=== PATIENT | female | born 1985 | race American Indian/Alaskan Native ===

== ENCOUNTER 2016-06-23 22:35 | Emergency (ER) | payer MEDICAID ==
[2016-06-24 02:05] LABS: Bilirubin,Urine NEG (Negative); Blood,Urine NEG (Negative); Ketones,Urine NEG (Negative); Leukocyte Esterase,Urine LG (Negative); Mucus,Urine 3+ /HPF; Nitrite,Urine NEG (Negative); Protein,Urine <15 mg/dL mg/dL (Negative)
--- NOTE | 2016-06-24 03:26 | Emergency Department Report ---
ED Female HPI - General Chief complaint: Urogenital-Female Stated complaint: PAINFUL TO URINATE/11WKS Time Seen by Provider: 06/24/16 02:48 Source: patient, family Mode of arrival: Ambulatory Limitations: No Limitations - History of Present Illness Initial comments: Patient here reported that she is having sharp pain with urination worsening today. She says she is having some hesitancy or retention. Patient reports vaginal discharge as well but said that within normal vaginal discharge without any further. She said this is not new and she is concerned about an STD. She denies vaginal bleeding in, back pain or abdominal pain. She denies any fever or chills. Denies any nausea or vomiting. She reports she is able to tolerate food and liquid. Patient reports she is 11 weeks and she's been followed by [facility] at [facility]. She says she had ultrasound last Friday initiated her baby was fine in her uterus and she has an appointment with [facility] doctor soon. MD Complaint: vaginal discharge, dysuria -: This afternoon Severity scale (0 -10): 0 Are you Now?: Yes Associated Symptoms: vaginal discharge, dysuria. denies: vaginal bleeding, abdominal pain, nausea/vomiting, fever/chills, headaches, loss of appetite, hematuria, rash, seizure, shortness of breath, syncope, weakness - Related Data Sexually active: Yes Previous Rx's Medication Instructions Recorded Last Taken Type Nitrofurantoin [place]/M-Cryst 100 mg PO Q12HR #14 capsule 06/24/16 Unknown Rx [Macrobid CAP] Allergies Allergy/AdvReac Type Severity Reaction Status Date / Time No Known Allergies Allergy Unverified 06/23/16 22:52 ED Review of Systems ROS: Stated complaint: PAINFUL TO URINATE/11WKS Other details as noted in HPI Comment: All other systems reviewed and negative Constitutional: denies: chills, fever, weakness Eyes: denies: eye discharge ENT: denies: throat pain, congestion Respiratory: no symptoms reported Cardiovascular: denies: chest pain, palpitations, edema, syncope Gastrointestinal: denies: abdominal pain, nausea, vomiting, diarrhea, constipation Genitourinary: dysuria, discharge. denies: frequency, hematuria Musculoskeletal: denies: back pain, arthralgia Skin: denies: rash Neurological: denies: headache ED Past Medical Hx - Past Medical History Previous Medical History?: Yes Additional medical history: , 11 weeks, hyperthyroid - Surgical History Past Surgical History?: No - Family History Family history: no significant - Social History Smoking Status: Never Smoker Substance Use Type: None - Medications Home Medications: Home Medications Medication Instructions Recorded Confirmed Last Taken Type Nitrofurantoin [place]/M-Cryst 100 mg PO Q12HR #14 capsule 06/24/16 Unknown Rx [Macrobid CAP] ED Physical Exam - General Limitations: No Limitations General appearance: alert, in no apparent distress - Head Head exam: Present: atraumatic, normocephalic, normal inspection - Eye Eye exam: Present: normal appearance, PERRL, EOMI. Absent: periorbital swelling , periorbital tenderness Pupils: Present: normal accommodation - ENT ENT exam: Present: normal exam, normal orophraynx, mucous membranes moist, TM's normal bilaterally, normal external ear exam - Neck Neck exam: Present: normal inspection, full ROM. Absent: tenderness, meningismus, lymphadenopathy - Respiratory Respiratory exam: Present: normal lung sounds bilaterally. Absent: respiratory distress, chest wall tenderness - Cardiovascular Cardiovascular Exam: Present: regular rate, normal rhythm, normal heart sounds, other ( heart tone at 1 70 bpm) - GI/Abdominal GI/Abdominal exam: Present: soft, normal bowel sounds. Absent: distended, tenderness, guarding, rebound, rigid - Extremities Exam Extremities exam: Present: normal inspection, full ROM, normal capillary refill. Absent: tenderness, pedal edema, joint swelling, calf tenderness - Back Exam Back exam: Present: normal inspection, full ROM. Absent: tenderness, CVA tenderness (R), CVA tenderness (L), muscle spasm, paraspinal tenderness, vertebral tenderness, rash noted - Neurological Exam Neurological exam: Present: alert, oriented X3, normal gait - Psychiatric Psychiatric exam: Present: normal affect, normal mood - Skin Skin exam: Present: warm, dry, intact, normal color. Absent: rash ED Course Vital Signs 06/23/16 06/24/16 22:52 05:08 Temperature 98.6 F 98.6 F Pulse Rate 91 H 85 Respiratory 18 20 Rate Blood Pressure 127/76 Blood Pressure 121/72 [Left] O2 Sat by Pulse 99 99 Oximetry FHT 170 BPM - Reevaluation(s) Reevaluation #1: 06/24/16 04:54 Patient stable during ED course and she is able to drink without any difficulties. ED Medical Decision Making - Lab Data Lab Results 06/24/16 Range/Units 01:36 Urine Color Yellow (Yellow) Urine Turbidity Slightly-cloudy (Clear) Urine pH 5.0 (5.0-7.0) Ur Specific [place] 1.026 (1.003-1.030) Urine Protein <15 mg/dl (Negative) mg/dL Urine Glucose (UA) Neg (Negative) mg/dL Urine Ketones Neg (Negative) mg/dL Urine Blood Neg (Negative) Urine Nitrite Neg (Negative) Urine Bilirubin Neg (Negative) Urine Urobilinogen 2.0 (<2.0) mg/dL Ur Leukocyte Esterase Lg (Negative) Urine WBC (Auto) 5.0 (0.0-6.0) /HPF Urine RBC (Auto) 5.0 (0.0-6.0) /HPF U Epithel Cells (Auto) 5.0 (0-13.0) /HPF Urine Mucus 3+ /HPF Urine Yeast (Budding) 2+ /HPF Urine HCG, Qual Positive A (Negative) Urine culture pending - Medical Decision Making ED course: I discussed the patient that she has urinary tract infection and will be treated with Macrobid. Told her that she will need to drink plenty of fluids and call her [facility] to let her know that she was treated in emergency room for urinary tract infection. The patient that her urine culture was sent and will be back in 3-5 days and if we need to change antibiotic will call them and let her know. heart tones is at 170 beats per minutes and patient is not having any related issues. She has [facility] and she has been taking vitamin. She had her first ultrasound and she said that [facility] office told her that it was in her uterus and there are no problem. Patient discharged home in stable condition with her family with prescription for Macrobid. Critical care attestation.: If time is entered above; I have spent that time in minutes in the direct care of this critically ill patient, excluding procedure time. ED Disposition Clinical Impression: Acute cystitis without hematuria Qualifiers: Weeks of gestation: 11 weeks Qualified Code(s): Z3A.11 - 11 weeks gestation of Dysuria during Qualifiers: Trimester: first trimester Qualified Code(s): O26.891 - Other specified related conditions, first trimester Disposition: DISCHARGED TO HOME OR SELFCARE Is pt being admited?: No Does the pt Need Aspirin: No Condition: Stable Instructions: (ED), Urinary Tract Infection in Women (ED), Dysuria ( ED) Additional Instructions: increase her fluid intake. Please call your [facility] office today and let them know that urine hospital and treated for urinary tract infection. Urine was sent out for culture and if we need to change her antibiotic will call [facility]. Take antibiotic as prescribed Prescriptions: Nitrofurantoin [place]/M-Cryst [Macrobid CAP] 100 mg PO Q12HR #14 capsule Referrals: Your,[facility] [Other] - 06/25/16 Forms: Accompanied Note, Work/School Release Form(ED)
[2016-06-24 05:09] VITALS: BP 121/72
== END 2016-06-24 05:43 | disposition home or self-care (01) ==
LOC: ED 22:35
DX: O23.11 Infections of bladder in pregnancy, first trimester (principal); N30.00 Acute cystitis without hematuria; O26.891 Other specified pregnancy related conditions, first trimester; R30.0 Dysuria; E05.90 Thyrotoxicosis, unspecified without thyrotoxic crisis or storm; Z3A.11 11 weeks gestation of pregnancy
CPT/HCPCS: 81001; 81025; 87086; 99282

== ENCOUNTER 2016-08-17 08:26 | Emergency (ER) | payer MEDICAID ==
--- NOTE | 2016-08-17 16:57 | Emergency Department Report ---
ED HPI - General Chief complaint: Abdominal Pain Stated complaint: PAIN/ABD AREA Time Seen by Provider: 08/17/16 16:42 Source: patient Mode of arrival: Ambulatory Limitations: No Limitations - History of Present Illness Initial comments: 30-year-old female with no past medical history currently 19 weeks with prior ultrasound confirming IUP presenting today because of pelvic cramping. Patient states going on for the last 1 day. Has some occasional nausea without any vomiting. No associated diarrhea or blood in stool. She never had this type cramping in the past. States that this does not feel like her prior contractions and she has not had any clear fluid or blood coming from her vagina. - Related Data Previous Rx's Medication Instructions Recorded Last Taken Type Nitrofurantoin [place]/M-Cryst 100 mg PO Q12HR #14 capsule 06/24/16 Unknown Rx [Macrobid CAP] Acetaminophen [Acetaminophen TAB] 500 mg PO Q6HR #12 tablet 08/17/16 Unknown Rx Polyethylene Glycol 3350 [Miralax 17 gm PO QDAY #7 packet 08/17/16 Unknown Rx 3350] Allergies Allergy/AdvReac Type Severity Reaction Status Date / Time No Known Allergies Allergy Verified 08/17/16 08:43 ED Review of Systems ROS: Stated complaint: PAIN/ABD AREA Other details as noted in HPI Comment: All other systems reviewed and negative Constitutional: denies: chills, fever Cardiovascular: denies: chest pain Gastrointestinal: abdominal pain, nausea. denies: vomiting Skin: denies: rash Neurological: denies: headache Psychiatric: denies: anxiety ED Past Medical Hx - Past Medical History Additional medical history: , 11 weeks, hyperthyroid - Surgical History Past Surgical History?: No - Social History Smoking Status: Never Smoker Substance Use Type: None - Medications Home Medications: Home Medications Medication Instructions Recorded Confirmed Last Taken Type Nitrofurantoin [place]/M-Cryst 100 mg PO Q12HR #14 capsule 06/24/16 Unknown Rx [Macrobid CAP] Acetaminophen [Acetaminophen TAB] 500 mg PO Q6HR #12 tablet 08/17/16 Unknown Rx Polyethylene Glycol 3350 [Miralax 17 gm PO QDAY #7 packet 08/17/16 Unknown Rx 3350] ED Physical Exam - General Limitations: No Limitations General appearance: alert, in no apparent distress - Head Head exam: Present: atraumatic - Eye Eye exam: Present: normal appearance - Respiratory Respiratory exam: Present: normal lung sounds bilaterally. Absent: respiratory distress - Cardiovascular Cardiovascular Exam: Present: regular rate, normal rhythm - GI/Abdominal GI/Abdominal exam: Present: soft. Absent: distended, tenderness - External exam: Present: normal external exam Speculum exam: Present: normal speculum exam Bi-manual exam: Present: other (mild tenderness at the fundus, no cervical motion tenderness, no adnexal tenderness) - Neurological Exam Neurological exam: Present: alert - Psychiatric Psychiatric exam: Present: normal affect ED Course Vital Signs 08/17/16 08/17/16 08/17/16 08:43 17:47 18:52 Temperature 97.8 F 98.4 F Pulse Rate 97 H 102 H 97 H Respiratory 18 16 16 Rate Blood Pressure 113/74 Blood Pressure 111/64 127/76 [Left] O2 Sat by Pulse 100 100 100 Oximetry ED Medical Decision Making - Lab Data Result diagrams: 08/17/16 16:52 08/17/16 16:52 - Medical Decision Making Labs and ultrasound Ultrasound shows a viable intrauterine without any clear pathology Labs show some mild leukocytosis The patient's abdominal exam did not show any tenderness in the right upper quadrant or the adnexa or the right lower quadrant. My concern for any sort of abdominal pathology such as appendicitis or cholecystitis is very low. I discussed that the next step would be to do a CAT scan if we were concerned about any other pathology. I discussed that there are downsides to doing the CAT scan were which would increase the chances of baby having potentially high risk of cancer as well as possibly a small amount increased and defects. At this time the patient agrees that we will defer a CAT scan and she states that she will return if her symptoms worsen at which time we can consider a CAT scan. Patient also admits to some constipation with difficulty with stooling. Will prescribe miralax for patient and advised her to increase her water and fiber intake. Critical care attestation.: If time is entered above; I have spent that time in minutes in the direct care of this critically ill patient, excluding procedure time. ED Disposition Clinical Impression: Abdominal pain affecting Disposition: DISCHARGED TO HOME OR SELFCARE Is pt being admited?: No Does the pt Need Aspirin: No Condition: Stable Instructions: Abdominal Pain in (ED) Additional Instructions: Please follow up with the [facility] in the next 2-3 days. Return to the emergency room immediately if your pain worsens significantly or you develop any new symptoms. Prescriptions: Acetaminophen [Acetaminophen TAB] 500 mg PO Q6HR #12 tablet Polyethylene Glycol 3350 [Miralax 3350] 17 gm PO QDAY #7 packet Referrals: PRIMARY CARE, [Primary Care Provider] - 3-5 Days Time of Disposition: 19:05
[2016-08-17 17:26] LABS: Basophils % (Auto) 0.4 % (0.0-1.8); Eosinophils % (Auto) 0.9 % (0.0-4.3); Hematocrit 35.7 % (30.3-42.9); Hemoglobin 11.4 gm/dl (10.1-14.3); Mean Corpuscular HGB Conc 32 % (30-34); Mean Corpuscular Volume 81 fl (79-97); Platelet Count 294 K/mm3 (140-440); Red Blood Count 4.43 M/mm3 (3.65-5.03); Red Cell Distribution Width 14.7 % (13.2-15.2); White Blood Count 13.5 K/mm3 (4.5-11.0)
--- NOTE | 2016-08-17 17:40 | Ultrasound Report ---
FINAL REPORT EXAM: US OB \T\gt; = 14 WEEKS FETUS HISTORY: abdominal pain in TECHNIQUE: Multiple grayscale sonographic images were obtained of the uterus and fetus. PRIORS: None. FINDINGS: Cervix measures approximately 4.6 centimeters in length. There is a viable single intrauterine in transverse lie. heart rate was detected at 149 beats per minute. Stomach and bladder are identified. No gross abnormality is seen in the region of the cord insertion. No gross abnormality is seen in the kidneys. Cisterna magna measures 4.4 millimeters in AP dimension. The cerebellum measures 1.99 centimeters in transverse dimension. Lateral ventricle measures 6 millimeters in transverse dimension. Biparietal diameter 4.7 centimeters. Head circumference 17.4 centimeters. Abdominal circumference 15.4 centimeters. Femur length 3.4 centimeters. Estimated weight 365 grams. Correlates with 99th percentile. Placenta is posterior. No gross abnormality is identified in the visualized portion of the spine. IMPRESSION: 1. Viable single intrauterine with estimated gestational age 20 weeks 3 days. Estimated due date 01/01/2017. Continued follow-up is recommended.
[2016-08-17 17:43] LABS: Alanine Aminotransferase 11 units/L (7-56); Albumin 3.6 g/dL (3.9-5); Albumin/Globulin Ratio 1.1 %; Alkaline Phosphatase 59 units/L (35-129); Anion Gap 21 mmol/L; Blood Urea Nitrogen 3 mg/dL (7-17); Calcium 9.7 mg/dL (8.4-10.2); Carbon Dioxide 20 mmol/L (22-30); Chloride 98.9 mmol/L (98-107); Glucose 96 mg/dL (65-100); Lipase 43 units/L (13-60); Potassium 3.6 mmol/L (3.6-5.0); Sodium 136 mmol/L (137-145)
[2016-08-17] MEDS ORDERED: TYLENOL PO ONE (17:47)
[2016-08-17] MEDS ORDERED: ZOFRAN ODT PO ONE (17:48)
[2016-08-17 17:50] LABS: Mean Corpuscular Hemoglobin 26 pg (28-32)
[2016-08-17 17:58] LABS: Bilirubin,Direct < 0.2 mg/dL (0-0.2); Bilirubin,Indirect 0.1 mg/dL
[2016-08-17 18:37] LABS: Bacteria,Urine 1+ /HPF (Negative); Bilirubin,Urine NEG (Negative); Blood,Urine NEG (Negative); Ketones,Urine 20 mg/dL (Negative); Leukocyte Esterase,Urine MOD (Negative); Mucus,Urine 2+ /HPF; Nitrite,Urine NEG (Negative); Protein,Urine <15 mg/dL mg/dL (Negative); Urobilinogen,Urine < 2.0 mg/dL (<2.0)
[2016-08-17 18:53] VITALS: BP 127/76
== END 2016-08-17 19:46 | disposition home or self-care (01) ==
LOC: ED 08:26
DX: O26.892 Other specified pregnancy related conditions, second trimester (principal); R10.2 Pelvic and perineal pain; Z3A.19 19 weeks gestation of pregnancy
CPT/HCPCS: 36415; 76805; 80048; 80074; 81001; 83690; 84702; 85025; 86850; 86900; 86901; Q0162

== ENCOUNTER 2016-11-12 13:50 | Outpatient (CLI) | payer MEDICAID ==
[2016-11-12 14:59] VITALS: BP 104/57
[2016-11-12 15:30] LABS: Bacteria,Urine 1+ /HPF (Negative); Bilirubin,Urine NEG (Negative); Blood,Urine NEG (Negative); Ketones,Urine NEG (Negative); Leukocyte Esterase,Urine TR (Negative); Mucus,Urine FEW /HPF; Nitrite,Urine NEG (Negative); Protein,Urine <15 mg/dL mg/dL (Negative); RBC,Urine < 1.0 /HPF (0.0-6.0); Urobilinogen,Urine < 2.0 mg/dL (<2.0)
[2016-11-12] MEDS ORDERED: LACTATED RINGERS 500 ML IV ONE (16:02)
== END 2016-11-12 18:00 | disposition home or self-care (01) ==
LOC: TRG 13:50
PROVIDERS: ATTEND Obstetrics & Gynecology Gynecology
DX: O47.03 False labor before 37 completed weeks of gestation, third trimester (principal); Z3A.31 31 weeks gestation of pregnancy
CPT/HCPCS: 81001

== ENCOUNTER 2016-12-15 21:35 | Outpatient (CLI) | payer MEDICAID ==
[2016-12-15] MEDS ORDERED: LACTATED RINGERS 500 ML IV ONE (22:31)
[2016-12-15 23:18] LABS: Bacteria,Urine 1+ /HPF (Negative); Bilirubin,Urine NEG (Negative); Blood,Urine NEG (Negative); Ketones,Urine NEG (Negative); Leukocyte Esterase,Urine TR (Negative); Nitrite,Urine NEG (Negative); Protein,Urine <15 mg/dL mg/dL (Negative); Urobilinogen,Urine < 2.0 mg/dL (<2.0)
[2016-12-15 23:20] VITALS: BP 127/76
== END 2016-12-15 23:40 | disposition home or self-care (01) ==
LOC: TRG 21:35
PROVIDERS: ATTEND Obstetrics & Gynecology Gynecology
DX: O47.03 False labor before 37 completed weeks of gestation, third trimester (principal); Z3A.36 36 weeks gestation of pregnancy
CPT/HCPCS: 59025; 81001

== ENCOUNTER 2017-01-04 12:34 | Inpatient (IN) | payer MEDICAID ==
[2017-01-04] MEDS ORDERED: ZOFRAN IV PRN ×2 (12:57→17:44)
[2017-01-04] MEDS ORDERED: PHENERGAN PO PRN ×2 (12:57→17:44)
[2017-01-04] MEDS ORDERED: XYLOCAINE 2% INFILTRATI ONE ×2 (12:57→15:48)
[2017-01-04] MEDS ORDERED: NARCAN 0.4 MG/1 ML IV PRN (12:57)
[2017-01-04] MEDS ORDERED: STADOL IV PRN (12:57)
[2017-01-04] MEDS ORDERED: SUBLIMAZE IV PRN (12:57)
[2017-01-04] MEDS ORDERED: ePHEDrine SULFATE IV PRN ×2 (12:57→16:24)
[2017-01-04] MEDS ORDERED: POLYCILLIN/NS 2 GM/100 ML 2 GM/100 ML BAG IV ONE (13:00)
[2017-01-04] MEDS ORDERED: PITOCin/NS 30 UNIT/500ML 30 UNITS/500 ML BAG IV SCH ×2 (13:00)
[2017-01-04] MEDS ORDERED: PITOCin/NS 20 UNIT/1000ML DRIP 20 UNITS/1,000 ML BAG IV SCH ×2 (13:00→18:00)
--- NOTE | 2017-01-04 13:05 | History and Physical Report ---
History of Present Illness Date of examination: 01/04/17 Chief complaint: Labor History of present illness: Pt is a 31yo BF EDC 01/10/17; EGA 39 1/7 weeks presents to L&D complaining of RUC's q 3-4 mins. She received care at [facility] and course has been unremarkable and records are not available. GBS is unknown. Past History Past Medical History: thyroid disease Past Surgical History: no surgical history Family/Genetic History: none Social history: no significant social history, single - Obstetrical History Expected Date of Delivery: 01/10/17 Actual Gestation: 39 Week(s) 1 Day(s) : 2 Medications and Allergies Allergies Allergy/AdvReac Type Severity Reaction Status Date / Time No Known Allergies Allergy Verified 08/17/16 08:43 Home Medications Medication Instructions Recorded Confirmed Last Taken Type Ferrous Sulfate [Feosol] 325 mg PO BID 12/15/16 01/04/17 1 Day Ago History Vit-Fe Fumar-FA [ 1 tab PO QDAY 12/15/16 01/04/17 1 Day Ago History Vitamin] Active Meds: Active Medications Butorphanol Tartrate (Stadol) 2 mg IV Q2H PRN PRN Reason: Pain , Severe (7-10) Ephedrine Sulfate (Ephedrine Sulfate) 10 mg IV Q2M PRN PRN Reason: Hypotension Stop: 01/04/17 13:02 Fentanyl (Sublimaze) 100 mcg IV Q2H PRN PRN Reason: Labor Pain Ampicillin Sodium (Polycillin/Ns 1 Gm/50 Ml) 1 gm in 50 mls @ 100 mls/hr IV Q4HR FCO PRN Reason: Protocol Ampicillin Sodium (Polycillin/Ns 2 Gm/100 Ml) 2 gm in 100 mls @ 100 mls/hr IV ONCE ONE PRN Reason: Protocol Stop: 01/04/17 13:56 Lactated Ringer's (Lactated Ringers) 1,000 mls @ 125 mls/hr IV DIRECT FCO Oxytocin/Sodium Chloride (Pitocin/Ns 20 Unit/1000ml Drip) 20 units in 1,000 mls @ 125 mls/hr IV DIRECT FCO Oxytocin/Sodium Chloride (Pitocin/Ns 30 Unit/500ml) 30 units in 500 mls @ 4 mls /hr IV TITR FCO PRN Reason: Protocol Oxytocin/Sodium Chloride (Pitocin/Ns 30 Unit/500ml) 30 units in 500 mls @ 1 mls /hr IV TITR FCO; 1 MILLIUNITS/MIN PRN Reason: Protocol Lidocaine (Xylocaine 2%) 20 ml INFILTRATI ONCE ONE Stop: 01/04/17 12:58 Mineral Oil (Mineral Oil) 30 ml PO QHS PRN PRN Reason: Constipation Naloxone HCl (Narcan 0.4 Mg/1 Ml) 0.1 mg IV Q2MIN PRN PRN Reason: Res Rate </= 8 or 02 SAT < 92% Ondansetron HCl (Zofran) 4 mg IV Q8H PRN PRN Reason: Nausea And Vomiting Promethazine HCl (Phenergan) 25 mg PO Q6H PRN PRN Reason: Nausea And Vomiting Terbutaline Sulfate (Brethine) 0.25 mg SUB-Q ONCE PRN PRN Reason: Hyperstimulation/Hypertonicity Stop: 01/04/17 12:58 Terbutaline Sulfate (Brethine) 0.25 mg IVP ONCE PRN PRN Reason: Hyperstimulation/Hypertonicity Stop: 01/04/17 12:58 Review of Systems All systems: negative - Vital Signs Vital signs: Vital Signs Pulse BP 132 H 141/101 01/04/17 12:52 01/04/17 12:52 Temp Pulse Resp BP Pulse Ox 132 H 141/101 01/04/17 12:52 01/04/17 12:52 - Physical Exam Breasts: Positive: deferred Cardiovascular: Regular rate Lungs: Positive: Clear to auscultation Abdomen: Positive: normal appearance Genitourinary (Female): Positive: normal external genitalia Vagina: Positive: normal moisture Uterus: Positive: enlarged Extremities: Positive: normal - Obstetrical FHR: category 1 Uterine Contraction Monitor Mode: External Cervical Dilatation: 5 Cervical Effacement Percentage: 70 station: -2 Uterine Contraction Pattern: Irregular Uterine Tone Measurement Phase: Contraction Uterine Contraction Intensity: Moderate Results Result Diagrams: 01/04/17 13:16 All other labs normal. Assessment and Plan - Patient Problems (1) 39 weeks gestation of Onset Date: 01/04/17 Current Visit: Yes Status: Acute Plan to address problem: A: IUP @ 39 1/7 weeks in labor Unknown GBS P: Admit to L&D for expectant vaginal delivery IV Ampicillin
[2017-01-04] MEDS ORDERED: BRETHINE SUB-Q PRN (13:10)
[2017-01-04] MEDS ORDERED: BRETHINE IVP PRN (13:15)
[2017-01-04] MEDS ORDERED: PITOCin/NS 20 UNIT/1000ML DRIP IV ONE (15:00)
[2017-01-04] MEDS ORDERED: PITOCin/NS 30 UNIT/500ML IV ONE (15:00)
[2017-01-04 15:05] LABS: Hematocrit 33.7 % (30.3-42.9); Hemoglobin 10.3 gm/dl (10.1-14.3); Mean Corpuscular HGB Conc 31 % (30-34); Mean Corpuscular Volume 76 fl (79-97); Platelet Count 262 K/mm3 (140-440); Red Blood Count 4.43 M/mm3 (3.65-5.03); Red Cell Distribution Width 19.3 % (13.2-15.2)
[2017-01-04 15:08] LABS: Mean Corpuscular Hemoglobin 23 pg (28-32)
[2017-01-04 15:12] LABS: HIVR-1/2 Ab Non React (Non React)
[2017-01-04 15:13] LABS: HIV-1 Antigen p24 Non React (Non React)
[2017-01-04] MEDS ORDERED: fentaNYL-BUPIV 2 MCG/ML-0.125% 200 MCG/100 ML BAG EPIDURAL ONE (15:13)
[2017-01-04] MEDS: LACTATED RINGERS 1,000 ML IV SCH ×2 (15:26→16:49)
[2017-01-04] MEDS ORDERED: NARCAN 2 MG/2 ML IV PRN (16:24)
--- NOTE | 2017-01-04 16:24 | Anesthesia Consultation ---
Anesthesia Consult and Med Hx Date of service: 01/04/17 - Airway Anesthetic Teeth Evaluation: Good ROM Head & Neck: Adequate Mental/Hyoid Distance: Adequate Mallampati Class: Class II Intubation Access Assessment: Probably Good - Pre-Operative Health Status ASA Pre-Surgery Classification: ASA3 Proposed Anesthetic Plan: General - Pulmonary Hx Asthma: No COPD: No Hx Pneumonia: No - Cardiovascular System Hx Hypertension: No - Central Nervous System Hx Seizures: No Hx Psychiatric Problems: No - Endocrine Hx Renal Disease: No Hx End Stage Renal Disease: No Hx Hypothyroidism: Yes Hx Hyperthyroidism: No - Hematic Hx Anemia: Yes Hx Sickle Cell Disease: No - Other Systems Hx Alcohol Use: No Hx Obesity: Yes (BMI 40.4)
[2017-01-04] MEDS ORDERED: fentaNYL-BUPIV 2 MCG/ML-0.125% 200 MCG/100 ML BAG EPIDURAL SCH (17:00)
[2017-01-04] MEDS ORDERED: POLYCILLIN/NS 1 GM/50 ML 1 GM/50 ML BAG IV SCH (17:00)
--- NOTE | 2017-01-04 17:39 | Procedure Note ---
OB Delivery Note - Delivery Date of Delivery: 01/04/17 Surgeon: PRESLEY DONOHUE Estimated blood loss: other (150cc) - Vaginal Delivery presentation: vertex Delivery position: OP Intrapartum events: mult.variable deceleratio Delivery induction: oxytocin Delivery augmentation: rupture of membranes, pitocin Delivery monitor: external FHT, external uterine Route of delivery: vacuum extraction (2 pulls, no pop-offs) Indicators for instrumentation: nonreassuring FHR tracing Delivery placenta: spontaneous Delivery cord: nuchal cord, 3 umbilical vessels Episiotomy: none Delivery laceration: 1st degree (perineal) Delivery repair: vicryl Anesthesia: epidural Delivery comments: delivered OP with low vacuum extraction - 2 pulls; 1 pop-off, and placed on Mom's chest for [id number] bonding and delayed cord clamping. - Infant A at 1 minute: 7 at 5 minutes: 9 Infant Gender: Female (3423gms)
[2017-01-04] MEDS ORDERED: TYLENOL PO PRN (17:44)
[2017-01-04] MEDS ORDERED: TUCKS PAD TP PRN (17:44)
[2017-01-04] MEDS ORDERED: PHENERGAN PR PRN (17:44)
[2017-01-04] MEDS ORDERED: LANSINOH TP PRN (17:44)
[2017-01-04] MEDS ORDERED: BENADRYL PO PRN (17:44)
[2017-01-04] MEDS ORDERED: SODIUM CHLORIDE FLUSH SYRINGE 10 ML IV NR (18:00)
[2017-01-04] MEDS: MOTRIN PO SCH (20:41)
[2017-01-04] MEDS: FEOSOL PO SCH (21:36)
[2017-01-04] MEDS: COLACE PO SCH (21:36)
[2017-01-04] MEDS ORDERED: MINERAL OIL PO PRN (22:00)
[2017-01-04] MEDS ORDERED: MILK OF MAGNESIA PO PRN (22:00)
[2017-01-04] MEDS ORDERED: DULCOLAX PR PRN (22:00)
[2017-01-04] MEDS: NORCO 5/325 PO PRN (23:22)
[2017-01-05] MEDS: MOTRIN PO SCH ×4 (01:12→23:36)
[2017-01-05 06:15] LABS: Hematocrit 29.2 % (30.3-42.9); Hemoglobin 9.3 gm/dl (10.1-14.3)
--- NOTE | 2017-01-05 10:40 | Progress Note ---
Assessment and Plan - Patient Problems (1) 39 weeks gestation of Onset Date: 01/04/17 Current Visit: Yes Status: Resolved (2) (normal spontaneous vaginal delivery) Onset Date: 01/05/17 Current Visit: Yes Status: Resolved Plan to address problem: A: s/p - PPD #1 Doing well P: May go home tomorrow Subjective - Subjective Date of service: 01/05/17 Principal diagnosis: s/p - PPD #1 Interval history: Pt is feeling well, complaining of hemorrhoids. Bleeding improved. Patient reports: appetite normal, voiding normally, pain well controlled, ambulating normally : doing well, nursing well, bottle feeding Objective - Vital Signs Latest vital signs: Vital Signs Temp Pulse Resp BP BP Pulse Ox 01/05/17 04:00 98.2 F 94 H 20 103/61 01/04/17 19:50 98.0 F 96 H 18 122/74 01/04/17 18:58 106 H 133/64 01/04/17 18:43 99 H 132/64 01/04/17 18:28 99 H 132/59 01/04/17 18:14 98.1 F 16 01/04/17 18:13 99 H 136/69 01/04/17 17:58 101 H 133/84 01/04/17 17:45 16 01/04/17 17:43 125/84 01/04/17 17:28 93 H 142/83 01/04/17 17:26 90 141/75 01/04/17 17:15 146 H 132/64 01/04/17 16:59 121 H 131/72 01/04/17 16:54 102 H 84 01/04/17 16:53 108 H 100 01/04/17 16:48 109 H 100 01/04/17 16:43 108 H 100 01/04/17 16:38 116 H 100 01/04/17 16:33 115 H 100 01/04/17 16:32 126 H 115/76 01/04/17 16:28 111 H 126/73 01/04/17 16:26 131 H 123/77 01/04/17 16:19 101 H 99 01/04/17 16:16 102 H 145/80 01/04/17 16:14 106 H 100 01/04/17 15:54 108 H 163/74 01/04/17 15:51 122 H 156/81 01/04/17 15:48 102 H 141/80 01/04/17 15:42 117 H 150/79 01/04/17 15:39 123 H 155/96 01/04/17 14:37 97.3 F L 01/04/17 14:24 18 01/04/17 13:35 104 H 137/92 01/04/17 13:00 98.2 F 92 H 20 141/101 96 01/04/17 12:52 132 H 141/101 Intake and Output 01/04/17 01/05/17 01/05/17 22:59 06:59 14:59 Intake Total 412.917 Output Total 900 Balance -487.083 Intake: IV 172.917 Lactated Ringers 1,000 ml 172.917 @ 125 mls/hr IV DIRECT FCO Rx#:[id number] Oral 240 Output: Urine 900 Void 900 Other: Total, Intake Amount 240 Total, Output Amount 900 Estimated Blood Loss 200 - Exam Breasts: Present: deferred Cardiovascular: Present: Regular rate Lungs: Present: Clear to auscultation Abdomen: Present: normal appearance, soft Uterus: Present: normal, firm, fundal height below umbilicus Extremities: Present: normal - Labs Labs: Abnormal lab results 01/04/17 01/05/17 Range/Units 13:16 05:47 WBC 15.0 H (4.5-11.0) K/mm3 Hgb 9.3 L (10.1-14.3) gm/dl Hct 29.2 L (30.3-42.9) % MCV 76 L (79-97) fl MCH 23 L (28-32) pg RDW 19.3 H (13.2-15.2) % Laboratory Tests 01/04/17 01/04/17 01/04/17 13:16 13:16 13:30 WBC 15.0 H RBC 4.43 Hgb 10.3 Hct 33.7 MCV 76 L MCH 23 L MCHC 31 RDW 19.3 H Plt Count 262 Hep Bs Antigen HIV 1&2 Antibody Rapid HIV P24 Antigen Rubella IgG Antibody Immune Blood Type O POSITIVE Antibody Screen TNR ALFRED Antibody Screen Negative 01/04/17 01/04/17 01/05/17 13:30 13:30 05:47 WBC RBC Hgb 9.3 L Hct 29.2 L MCV MCH MCHC RDW Plt Count Hep Bs Antigen Non-reactive HIV 1&2 Antibody Rapid Non react HIV P24 Antigen Non react Rubella IgG Antibody Blood Type Antibody Screen ALFRED Antibody Screen
[2017-01-05] MEDS: COLACE PO SCH ×2 (11:01→23:35)
[2017-01-05] MEDS: NORCO 5/325 PO PRN (11:01)
[2017-01-05] MEDS: PRENATAL VITAMIN PO SCH (11:01)
[2017-01-05] MEDS: FEOSOL PO SCH ×2 (11:01→23:35)
[2017-01-05] MEDS ORDERED: BOOSTRIX IM ONE (12:00)
[2017-01-05] MEDS ORDERED: M-M-R II VACCINE SUB-Q ONE (12:00)
--- NOTE | 2017-01-05 12:09 | Discharge Summary ---
Providers - Providers Date of Admission: 01/04/17 12:35 Date of discharge: 01/06/17 Attending physician: PRESLEY DONOHUE Primary care physician: PRESLEY DONOHUE Hospitalization Reason for admission: active labor, IUP at term Delivery: Episiotomy: none Laceration: 1st degree Other procedures: none complications: none Discharge diagnosis: IUP at term delivered [place] baby: female Hospital course: Unremarkable. Condition at discharge: Good Disposition: DC-01 TO HOME OR SELFCARE - Discharge Diagnoses (1) 39 weeks gestation of Status: Resolved (2) (normal spontaneous vaginal delivery) Status: Resolved Plan - Discharge Medications Prescriptions: Benzocaine/Benzethon Cl [Dermoplast Antibacterial [place]] 78 gm TP Q8HR #1 aerosol Ferrous Sulfate [Feosol 325 MG tab] 325 mg PO BID #60 tablet Ibuprofen [Motrin 600 MG tab] 600 mg PO Q6H #30 tablet Vit-Fe Fumar-FA [ Vitamin] 1 each PO QDAY #30 tablet - Provider Discharge Summary Activity: routine, no sex for 6 weeks, no heavy lifting 4 weeks, no strenuous exercise Diet: routine Instructions: routine Additional instructions: [] Smoking cessation referral if applicable(refer to patient education folder for contact #) [] Refer to [facility] Booklet Call your doctor immediately for: * Fever > 100.5 * Heavy vaginal bleeding ( >1 pad per hour) * Severe persistent headache * Shortness of breath * Reddened, hot, painful area to leg or breast * Drainage or odor from incision. * Keep incision clean and dry at all times and follow doctor's instructions regarding bathing/showering - Follow up plan Follow up: PRESLEY DONOHUE MD [Primary Care Provider] - 6 Weeks
[2017-01-05] MEDS ORDERED: DERMOPLAST TP PRN (12:10)
[2017-01-05] MEDS ORDERED: PROCTOSOL-HC PR PRN (14:00)
[2017-01-06] MEDS: MOTRIN PO SCH ×3 (05:17→18:05)
[2017-01-06] MEDS: FEOSOL PO SCH (11:21)
[2017-01-06] MEDS: PRENATAL VITAMIN PO SCH (11:21)
[2017-01-06] MEDS: COLACE PO SCH (11:22)
[2017-01-07 11:20] VITALS: BP 130/89
== END 2017-01-06 18:15 | disposition home or self-care (01) | DRG 775 ==
LOC: TRG 12:34 → LD 12:35 → OB 19:47
PROVIDERS: ADMIT Obstetrics & Gynecology; ATTEND Obstetrics & Gynecology
PROC: 10D07Z6 Extraction of Products of Conception, Vacuum, Via Natural or Artificial Opening (ICD-10-PCS; principal; 2017-01-04)
PROC: 3E0P3VZ Introduction of Hormone into Female Reproductive, Percutaneous Approach (ICD-10-PCS; 2017-01-04)
PROC: 3E0R3BZ Introduction of Anesthetic Agent into Spinal Canal, Percutaneous Approach (ICD-10-PCS; 2017-01-04)
PROC: 0HQ9XZZ Repair Perineum Skin, External Approach (ICD-10-PCS; 2017-01-04)
PROC: 00HU33Z Insertion of Infusion Device into Spinal Canal, Percutaneous Approach (ICD-10-PCS; 2017-01-04)
PROC: 3E0234Z Introduction of Serum, Toxoid and Vaccine into Muscle, Percutaneous Approach (ICD-10-PCS; 2017-01-05)
DX: O76 Abnormality in fetal heart rate and rhythm complicating labor and delivery (principal); Z3A.39 39 weeks gestation of pregnancy; Z37.0 Single live birth; O70.0 First degree perineal laceration during delivery; O69.81X0 Labor and delivery complicated by cord around neck, without compression, not applicable or unspecified; Z23 Encounter for immunization
CPT/HCPCS: 36415; 85014; 85018; 85027; 86592; 86706; 86762; 86850; 86900; 86901; 87806; 99211; A6250; G0463; J0290; J0595; J2590; J3010; J7120